=== PATIENT | female | born 1985 | race Caucasian/White ===

== ENCOUNTER 2016-10-05 20:35 | Emergency (ER) | payer BC ==
[~2016-10-05] VITALS: Ht 167.6 cm; Wt 70.4 kg
[~2016-10-05 20:35] MED LIST: HYDR-3989 PO; IBUP-1547 PO; PREN-92 PO
[2016-10-05 20:41] VITALS: Ht 167.6 cm; Wt 70.4 kg
--- NOTE | 2016-10-05 20:47 | ERPDOC ---
Departure Disposition Decision Date: Oct 05, 2016 Disposition Decision Time: 21:44 (JUAN PABLO VELIZ APRN) Disposition: 01 DISCHARGED HOME, SELF-CARE Impression Impression (JUAN PABLO VELIZ APRN) Impression: Primary Impression: Popliteal cyst Laterality: right Qualified Codes: M71.21 - Synovial cyst of popliteal space [Haque], right knee Additional Impression: Right leg pain Severity: Moderate (JUAN PABLO VELIZ APRN) Condition: Stable Seen By: Mid-level only (JUAN PABLO VELIZ APRN) Patient Instructions: Bakers Cyst (ED) Problems/Meds/Labs Reviewed?: Yes Medications reviewed and manag: Yes (JUAN PABLO VELIZ APRN) Additional Instructions: No sonographic evidence of a blood clot in your right leg. You do have a popliteal cyst (Bakers cyst). Your leg pain may be due to other reasons such as a raphael splint or some other type of musculoskeletal pain. Take OTC Tylenol as needed for pain. Avoid activity that exacerbates your pain. Follow with your PCP as needed for re-evaluation. Follow treatment plan. Follow up care ordered?: Yes Mental Status: Alert, Oriented (JUAN PABLO VELIZ APRN) HPI - Lower Extremity General Chief Complaint: Lower Extremity Pain Stated Complaint: 34 WK POSSIBLE BLOOD CLOT Time Seen by Provider: 20:47 Source: patient (JUAN APBLO VELIZ APRN) Time Seen by Provider: 20:47 (EVITA ABARCA DO) HPI - Lower Extremity Initial Comments 31 YO F presents to ED with report of right anterior leg pain that started at 1600 today. Reporst pain over right raphael. Patient has not taken anything for pain. Denies any fever, chills, swelling of leg, trauma or strain of leg. Patient describes pain different than "muscle pain". Patient is 34 week , III, Para II. EDC 11-15-16. Patient states she is still running [address] Oviedo sent patient to the ED to r/o DVT. FHT 145 Pain/Severity Scale: Now: 06/19 Pain/Injury Location: right leg Method of Injury: unknown Quality: aching (JUAN PABLO VELIZ APRN) Allergies: Coded Allergies: No Known Drug Allergies (Verified Allergy, Unknown, 10/05/16) Past History Past Medical History Pt denies signifigant PMH (JUAN PABLO VELIZ APRN) Surgical History Denies Surgeries (JUAN PABLO VELIZ APRN) Family History Family PMH: FOUND: other (noncontributory) (JUAN PABLO VELIZ APRN) Vaccines Hx Influenza Vaccination: No Hx Pneumococcal Vaccination: No Hx Tetanus Diptheria: No Hx Tetanus, Diptheria, Pertuss: Yes (09/01/14) (JUAN PABLO VELIZ APRN) Social History Sexuality: male partner (JUAN PABLO VELIZ APRN) Review of Systems Constitutional Constitutional: DENIES: chills, fever (JUAN PABLO VELIZ SHELLFISH SORTER) Eyes General: DENIES: erythema, exudate Lids/Accessories: DENIES: erythema, swelling (JUAN PABLO VELIZ SHELLFISH SORTER) ENMT Ears: DENIES: pain Sinuses: DENIES: congestion, rhinorrhea Mouth/Throat: DENIES: sore throat (MANNY VELIZS A SHELLFISH SORTER) Cardiovascular Cardiac: DENIES: murmur (MANNY VELIZS A SHELLFISH SORTER) Pulmonary Respiratory: DENIES: cough, dyspnea (JUAN PABLO VELIZ SHELLFISH SORTER) GI Upper Abdomen: DENIES: nausea, pain, vomiting Lower Abdomen: DENIES: diarrhea, pain (MANNY VELIZS A SHELLFISH SORTER) General: DENIES: pain (MANNY VELIZS A SHELLFISH SORTER) Musculoskeletal General: pain, see HPI, tenderness (MANNY VELIZS A SHELLFISH SORTER) Integumentary Skin: DENIES: color change, itching, rash (MANNY VELIZS A SHELLFISH SORTER) Neurological General: DENIES: ataxia, change in strength, numbness, paralysis/paresis, weakness (MANNY VELIZS A SHELLFISH SORTER) Psychiatric Psychiatric: DENIES: anxiety (MANNY VELIZS A SHELLFISH SORTER) Physical Exam General General Nourishment: well nourished, well developed, no acute distress, adult General Body Habitus: well groomed (MANNY VELIZS A SHELLFISH SORTER) Vitals and Pain First Documented Vital Signs Date Time Temp Pulse Resp B/P Pulse Ox O2 Delivery O2 Flow Rate FiO2 10/05/16 20:41 98.2 61 14 125/80 99 Room Air (EVITA ABARCA DO) Vitals and Pain Weight: Kilograms: Height (feet): 5 Height (inches): 6.00 Triage Pain Scale: (MANNY VELIZS A SHELLFISH SORTER) Eyes (brief) Eyes Brief: found: EOMI (JUAN PABLO VELIZ SHELLFISH SORTER) ENMT (brief) ENMT Brief: NOT FOUND: nasal exudate, nasal swelling (MANNY VELIZS A SHELLFISH SORTER) Neck (brief) Neck: FOUND: trachea midline (MANNY VELIZS Bubba SHELLFISH SORTER) Respiratory (brief) Respiratory: FOUND: clear all lechuga, equal bilaterally, symmetrical (MANNY VELIZS A SHELLFISH SORTER) Cardiovascular (brief) Cardiac: FOUND: regular rate, regular rhythm (MANNY VELIZS Bubba SHELLFISH SORTER) Cardiovascular Peripheral Pulses : Peripheral Pulses Side: right Peripheral Pulses Location: Dorsalis Pedis Pulses Strength: 2+ Edema : Edema Site: bilateral Edema Location: leg Edema Degree: 0 (MANNY VELIZS Bubba SHELLFISH SORTER) Musculoskeletal Joint : Side: Right Joint: knee, ankle Joint Findings: NOT FOUND: ROM limited, deformity, discoloration, instability, pain, swelling Extremity : Side: Right Extremity Findings: FOUND: pain (mild TTP palpation over right raphael), NOT FOUND: deformity, discoloration, swelling (MANNY VELIZS Bubba SHELLFISH SORTER) Integumentary (brief) Integumentary Brief: FOUND: dry, pink, warm (MANNY VELIZS Bubba SHELLFISH SORTER) Neurologic (brief) Neurological Brief: FOUND: motor-no gross deficits, sensory-no gross deficits, NOT FOUND: ataxia (MANNY VELIZS A SHELLFISH SORTER) Psychiatric (brief) Psychiatric Brief: FOUND: alert, normal affect, oriented (MANNY VELIZS Bubba SHELLFISH SORTER ) Differential Diagnoses Considering: Cellulitis, DVT, Sprain, Strain, Other (Popliteal cyst) (MANNY VELIZS Bubba SHELLFISH SORTER) Progress Results/Orders Orders Procedure Category Date Status Time Us Venous Duplex, US 10/05/16 Taken Lower Ext Rt (EVITA ABARCA DO) Progress Progress Patient declined tylenol. I discussed US findings and exam findings with patient. I told patient that I think that the pain in her right anterior leg is consistent with musculoskeletal not the popliteal cyst. I discussed close follow up PCP, treatment plan and return precautions which patient verbalized understanding. (JUAN PABLO VELIZ APRN) Consult/PCP Consult/PCP : Physician Contacted: Dr. Oviedo Time Called: 15:15 Type of discussion: Phone Consult/PCP Discussion Details I discussed US report with Dr. Oviedo and treatment plan. (JUAN PABLO VELIZ SHELLFISH SORTER) Ultrasound US : Ultrasound: Venous Doppler (No DVT, approx. 3.5 cm x 1 cm popliteal cyst) Interpretation: Faxed Report (JUAN PABLO VELIZ APRN) JUAN PABLO VELIZ APRN Oct 05, 2016 20:47 EVITA ABARCA DO Oct 06, 2016 01:19
--- NOTE | 2016-10-05 21:07 | NUR ---
ALYO TONG AT BEDSIDE FOR LOWER EXTREMITY DOPPLER
--- NOTE | 2016-10-05 21:11 | NUR ---
REPORT REPORT RECIEVED FROM MELANIE SWAN
--- NOTE | 2016-10-05 22:12 | NUR ---
INSTRUCTIONS DISMISSAL INSTRUCTIONS GIVEN TO PT PT RATES PAIN 1/10 VERBALIZED UNDERSTANDING OF ALL
[2016-10-05 22:14] VITALS: BP 104/64; PULSE 83; RESP 14; TEMP 98.2; O2SAT 97
--- NOTE | 2016-10-05 22:14 | NUR ---
DISMISS PT DISMISSED AMBULATORY WITH SPOUSE
--- NOTE | 2016-10-07 13:20 | DI ---
Indication: ITS.REASON: pain in anterior leg PROCEDURE: US VENOUS DUPLEX, LOWER EXT RT: Encounter: Initial Comparison: None Technique: Color Doppler duplex and grayscale sonographic imaging of the right lower extremity was performed. Findings: There is no evidence for acute deep venous thrombosis in the right thigh. Specifically, serial graded compression was performed from the inguinal ligament to the popliteal bifurcation, on the right thigh, demonstrating appropriate compressibility of the deep venous system. In addition, color and pulsed Doppler demonstrate appropriate spontaneous flow, variation with respiration, and augmentation with calf compression. At the ankle, normal flow is identified in the posterior tibial veins; these vessels are also normal in caliber. Slow flow noted in the common femoral vein. Small Haque's cyst. Impression: No evidence of acute DVT in the right lower limb. There is a preliminary report by [facility]. .
== END 2016-10-05 22:14 | disposition home or self-care (01) ==
LOC: ED 20:35
DX: O26.893 Other specified pregnancy related conditions, third trimester (principal); M79.661 Pain in right lower leg; M71.21 Synovial cyst of popliteal space [Baker], right knee; Z3A.34 34 weeks gestation of pregnancy

== ENCOUNTER 2016-11-12 19:24 | Inpatient (IN) ==
[2016-11-12] MEDS ORDERED: ACETAMINOPHEN 500 MG TABLET PO PRN (21:01)
[2016-11-12] MEDS ORDERED: CALCIUM CARBONATE Chewable 500mg TABLET PO PRN (21:01)
[2016-11-12] MEDS ORDERED: CARBOPROST 250 MCG/ML INJECTION IM PRN (21:01)
[2016-11-12] MEDS ORDERED: METHYLERGONOVINE 0.2 MG/ML INJECTION IM PRN (21:01)
[2016-11-12] MEDS ORDERED: LR 1,000 ML IV PRN (21:01)
[2016-11-12] MEDS ORDERED: MAG-AL + SIM ORAL LIQUID 30ml PO PRN (21:01)
[2016-11-12] MEDS ORDERED: AMPICILLIN 2 GM in NS 100 ML IV SCH (21:30)
[2016-11-13] MEDS ORDERED: DiphenhydrAMINE 25 MG CAPSULE PO PRN (00:13)
[2016-11-13] MEDS ORDERED: CALCIUM CARBONATE Chewable 500mg TABLET PO PRN (00:13)
[2016-11-13] MEDS ORDERED: PHENYLEPHRINE RECTAL SUPPOSITORY PR PRN (00:13)
[2016-11-13] MEDS ORDERED: ACETAMINOPHEN 500 MG TABLET PO PRN (00:13)
[2016-11-13] MEDS ORDERED: MAG-AL + SIM ORAL LIQUID 30ml PO PRN (00:13)
[2016-11-13] MEDS ORDERED: SALINE FLUSH 10ml SYRINGE IVF PRN (00:13)
[2016-11-13] MEDS ORDERED: HYDROCORTISONE 2.5% CREAM 30gm RECTALLY PRN (00:13)
[2016-11-13] MEDS ORDERED: OXYTOCIN DRIP 30 UNIT/500 ML ML IV SCH ×2 (00:15)
[2016-11-13] MEDS: IBUPROFEN 800 MG TABLET PO PRN ×3 (01:03→19:53)
[2016-11-13] MEDS: HYDROCODONE/APAP 5mg/325mg TABLET PO PRN ×2 (03:45→15:42)
--- NOTE | 2016-11-13 07:18 | Labor and Delivery Note ---
DATE OF DELIVERY Divina Maya was admitted 11/12/2016. By now it is 11/13/2016. DELIVERY NOTE Ms. Maya presented to [facility] in active labor. She progressed well in first stage of labor. She was 6 cm and a short time later her membranes ruptured. She was complete. She then very quickly delivered the head in the OA presentation. Patient was on hands and knees. Baby was bulb suctioned on the perineum. With two further pushes, baby was delivered in total and placed on the bed with mother. Baby was then further bulb suctioned. Mother was turned over on her back and placed in the supine position and baby was then placed on mother's abdomen. After about two and half minutes, the cord was soft and flat. It was then doubly clamped and cut by the baby's father , Matthew. This is a liveborn female with Apgars of 8 and 9. Weight had not yet been obtained as baby is still in ujhd-by-lapj contact. After a few moments the placenta delivered spontaneously, intact. It had a normal configuration and normal-appearing three-vessel cord. There was a first-degree midline laceration. I infiltrated the area with dilute lidocaine and then secured it with a [id number] suture of 2-0 Vicryl. Total blood loss was approximately 400 ml. At the time of this dictation, mother and baby are doing well. VENUS
--- NOTE | 2016-11-13 08:17 | OB/GYN Progress Note ---
[employer]IMMER Progress Note - Subjective Today's Date: 11/13/16 - Objective Vital signs: Temp Pulse Resp BP Pulse Ox 98.5 F 73 16 107/63 97 11/13/16 03:45 11/13/16 03:45 11/13/16 03:45 11/13/16 03:45 11/13/16 03:45 VSS AF Urine Output: good General: alert and oriented Abdomen: non-tender Extremities: non-tender Edema: none Laboratory Result: 11/12/16 21:10 Additional Findings: GBS positive. Plan for dismissal tomorrow. Pain controlled with Lee and Ibuprofen. - Assessment and Plan (1) Spontaneous vaginal delivery
[2016-11-13] MEDS ORDERED: PRENATAL VITS W CA FE FA PO SCH (09:00)
[2016-11-13] MEDS ORDERED: DOCUSATE CALCIUM 240 MG CAPSULE PO SCH (09:00)
[2016-11-13] MEDS ORDERED: [UNRECOGNIZED DRUG - OTHER] PO SCH (09:00)
[2016-11-13] MEDS ORDERED: PRENATAL VITAMIN TABLET PO SCH (09:00)
[2016-11-14] MEDS: AMPICILLIN 1 GM in NS 100 ML IV SCH (02:00)
--- NOTE | 2016-11-14 08:27 | Discharge Summary ---
Discharge Plan - Med Rec/Dispo Prescriptions: No Action Vits W-Ca,Fe,Fa(<1MG) ( Vitamins) 1 tab PO DAILY #0 [place]-3 Fatty Acids/Fish Oil [[place] 3 Fish Oil Softgel] #0
== END 2016-11-14 15:47 | disposition home or self-care (01) | DRG 775 ==
LOC: OBOBS 19:24 → MC 19:24
PROVIDERS: ADMIT Obstetrics & Gynecology; ATTEND Obstetrics & Gynecology